=== PATIENT | male | born 1960 | race Caucasian/White ===

== ENCOUNTER 2016-11-03 13:52 | Inpatient (IN) | payer MEDICAID ==
[~2016-11-03] VITALS: Ht 172.7 cm; Wt 74.8 kg
[2016-11-03 14:02] VITALS: BP_SYST 130
[2016-11-03] MEDS ORDERED: NACL 0.9% 1,000 ML IV ONE ×3 (14:30→16:00)
[2016-11-03] MEDS ORDERED: INSULIN REGULAR, HUMAN 10 UNITS/0.1 ML INJ IVP ONE ×2 (14:30→15:30)
[2016-11-03 14:39] LABS: BASOPHILS % (AUTO) 0.7 % (0.0-2.0); EOSINOPHILS # (AUTO) 0.1 K/uL (0.0-0.4); EOSINOPHILS % (AUTO) 1.2 % (0.0-4.0); HEMATOCRIT 45.7 % (36-54); HEMOGLOBIN 15.2 g/dL (14.0-18.0); LYMPHOCYTES # (AUTO) 1.7 K/uL (1.0-5.5); LYMPHOCYTES % (AUTO) 31.5 % (20.5-51.5); MEAN CORPUSCULAR HEMOGLOBIN 28 pg (27-31); MEAN CORPUSCULAR HGB CONC 33 % (32-36); MEAN CORPUSCULAR VOLUME 84 fL (79.0-98.0); MONOCYTES # (AUTO) 0.6 K/uL (0.0-1.0); MONOCYTES % (AUTO) 10.2 % (1.7-9.3); NEUTROPHILS # (AUTO) 3.1 K/uL (1.8-7.7); NEUTROPHILS % (AUTO) 56.4 % (40.0-70.0); PLATELET COUNT (AUTO) 370 K/uL (130-430); RED BLOOD CELL COUNT(AUTO) 5.43 MIL/uL (4.2-6.2); RED CELL DISTRIBUTION WIDTH 12.2 % (9.0-15.0); WHITE BLOOD COUNT (AUTO) 5.5 K/uL (4.8-10.8)
[2016-11-03 14:51] LABS: INR 0.8 (0.80-1.20)
[2016-11-03 14:54] LABS: ANION GAP 5 (5-15); CHLORIDE 89 mmol/L (98-107); CREATININE 1.14 mg/dL (0.55-1.30); POTASSIUM 3.6 mmol/L (3.5-5.1); SODIUM SERUM 123 mmol/L (136-145); UREA NITROGEN, BLOOD 15 mg/dL (8-21)
[2016-11-03 14:55] LABS: BILIRUBIN,URINE NEGATIVE (NEGATIVE); BLOOD, URINE NEGATIVE (NEGATIVE); CLARITY/URINE CLEAR (CLEAR); COLOR,URINE YELLOW (YELLOW); GLUCOSE,URINE 3+ (NEGATIVE); KETONES,URINE NEGATIVE (NEGATIVE); LEUKOCYTE ESTERASE ,URINE NEGATIVE (NEGATIVE); NITRITE, URINE NEGATIVE (NEGATIVE); PROTEIN URINE NEGATIVE (NEGATIVE); UROBILINOGEN,URINE 0.2 (0.2-1.0)
[2016-11-03 14:59] LABS: GFR AFRICAN AMERICAN 85 mL/min (>90)
[2016-11-03 15:02] LABS: GLUCOSE 736 mg/dL (70-99)
[2016-11-03 15:05] LABS: ALANINE AMINOTRANSFERASE 60 U/L (12-78); ALBUMIN 3.6 g/dL (3.4-4.8); ASPARTATE AMINOTRANSFERASE 26 U/L (10-37); TOTAL BILIRUBIN 0.8 mg/dL (0.0-1.0); TOTAL PROTEIN, SERUM 7.6 g/dL (6.4-8.3)
[2016-11-03 15:19] LABS: ACETONE, SERUM NEGATIVE (NEGATIVE); PROTHROMBIN TIME 9.1 SECS (9.5-12.5)
[2016-11-03 15:23] LABS: BACTERIA,URINE RARE /HPF (None Seen); MUCUS,URINE None Seen /LPF (None Seen); RBC,URINE NONE SEEN /HPF (0-3); WBC,URINE 0-3 /HPF (0-3)
[2016-11-03 16:17] VITALS: BP_SYST 115
[2016-11-03] MEDS ORDERED: GLUCOSE 15 GM GEL (in 37.5 GM TUBE) PO PRN ×2 (16:45)
[2016-11-03] MEDS ORDERED: DEXTROSE 50%-WATER 50 ML DISP.SYRIN IVP PRN ×2 (16:45)
[2016-11-03] MEDS: INSULIN REGULAR, HUMAN 100 UNITS/ML, 10 ML VIAL (novoLIN R) SUBCUT PRN ×2 (17:12→22:05)
[2016-11-03 17:31] LABS: ABG TOTAL HEMOGLOBIN 12.9 G/dL (12.0-18.0); BLOOD GAS COHb% 0.8 % (0.5-1.5); BLOOD GAS HHB 4.7 % (0.0-6.0); BLOOD GAS PH 7.397 (7.350-7.450); BLOOD O2Hb% 94.2 % (94.0-97.0)
[2016-11-03] MEDS ORDERED: POTASSIUM CHLORIDE 10 MEQ TAB.PRT.SR PO PRN (18:45)
[2016-11-03] MEDS ORDERED: MORPHINE 2 MG/ML INJ. SYRINGE IVP PRN (18:45)
[2016-11-03] MEDS ORDERED: ONDANSETRON HCL 4 MG/2 ML VIAL IVP PRN (18:45)
[2016-11-03] MEDS ORDERED: DOCUSATE SODIUM 100 MG CAPSULE PO PRN (18:45)
[2016-11-03] MEDS ORDERED: MAGNESIUM SULFATE 50 ML IV PRN (18:45)
[2016-11-03] MEDS ORDERED: LORazepam 2 MG/ML VIAL IVP PRN (18:45)
[2016-11-03] MEDS ORDERED: ACETAMINOPHEN 325 MG TABLET PO PRN (18:45)
[2016-11-03 19:40] VITALS: BP_SYST 115
[2016-11-03] MEDS ORDERED: ZOLPIDEM TARTRATE 5 MG TABLET PO PRN (21:00)
[2016-11-03] MEDS: HEPARIN SODIUM,PORCINE 5000 UNITS/ML VIAL SUBCUT SCH (22:06)
[2016-11-04 01:09] VITALS: BP_SYST 126
[2016-11-04 04:00] VITALS: BP_SYST 124
[2016-11-04 06:26] LABS: BASOPHILS % (AUTO) 0.6 % (0.0-2.0); EOSINOPHILS # (AUTO) 0.1 K/uL (0.0-0.4); EOSINOPHILS % (AUTO) 1.6 % (0.0-4.0); HEMATOCRIT 39.5 % (36-54); HEMOGLOBIN 13.6 g/dL (14.0-18.0); LYMPHOCYTES # (AUTO) 2.1 K/uL (1.0-5.5); LYMPHOCYTES % (AUTO) 37.9 % (20.5-51.5); MEAN CORPUSCULAR HEMOGLOBIN 29 pg (27-31); MEAN CORPUSCULAR HGB CONC 34 % (32-36); MEAN CORPUSCULAR VOLUME 84 fL (79.0-98.0); MONOCYTES # (AUTO) 0.6 K/uL (0.0-1.0); MONOCYTES % (AUTO) 9.9 % (1.7-9.3); NEUTROPHILS # (AUTO) 2.9 K/uL (1.8-7.7); PLATELET COUNT (AUTO) 295 K/uL (130-430); RED BLOOD CELL COUNT(AUTO) 4.72 MIL/uL (4.2-6.2); RED CELL DISTRIBUTION WIDTH 12.3 % (9.0-15.0); WHITE BLOOD COUNT (AUTO) 5.7 K/uL (4.8-10.8)
[2016-11-04] MEDS: INSULIN REGULAR, HUMAN 100 UNITS/ML, 10 ML VIAL (novoLIN R) SUBCUT PRN ×4 (06:45→22:11)
[2016-11-04 06:49] LABS: CALCIUM 8.5 mg/dL (8.4-11.0); CREATININE 0.85 mg/dL (0.55-1.30); POTASSIUM 3.5 mmol/L (3.5-5.1)
[2016-11-04 08:00] VITALS: BP_SYST 134
[2016-11-04] MEDS: HEPARIN SODIUM,PORCINE 5000 UNITS/ML VIAL SUBCUT SCH ×2 (08:31→22:10)
[2016-11-04] MEDS ORDERED: INSULIN NPH/REGULAR 70-30, 100 UNITS/ML, 10 ML VIAL SUBCUT ONE (10:00)
[2016-11-04 10:05] LABS: ALBUMIN 3.1 g/dL (3.4-4.8); BILIRUBIN,DIRECT 0.2 mg/dL (0.0-0.3); TOTAL BILIRUBIN 0.7 mg/dL (0.0-1.0); TOTAL PROTEIN, SERUM 6.3 g/dL (6.4-8.3)
[2016-11-04 12:00] VITALS: BP_SYST 149
[2016-11-04] MEDS: NACL 0.9% 1,000 ML IV SCH (12:31)
[2016-11-04 19:45] VITALS: BP_SYST 139
[2016-11-05 00:25] VITALS: BP_SYST 131
[2016-11-05] MEDS: NACL 0.9% 1,000 ML IV SCH ×3 (02:18→12:36)
[2016-11-05 04:23] VITALS: BP_SYST 112
[2016-11-05] MEDS: INSULIN REGULAR, HUMAN 100 UNITS/ML, 10 ML VIAL (novoLIN R) SUBCUT PRN ×2 (06:25→12:25)
[2016-11-05 07:15] LABS: BASOPHILS % (AUTO) 0.6 % (0.0-2.0); EOSINOPHILS # (AUTO) 0.1 K/uL (0.0-0.4); EOSINOPHILS % (AUTO) 1.2 % (0.0-4.0); HEMATOCRIT 40.6 % (36-54); LYMPHOCYTES # (AUTO) 2.1 K/uL (1.0-5.5); LYMPHOCYTES % (AUTO) 39.4 % (20.5-51.5); MEAN CORPUSCULAR HEMOGLOBIN 29 pg (27-31); MEAN CORPUSCULAR HGB CONC 35 % (32-36); MEAN CORPUSCULAR VOLUME 84 fL (79.0-98.0); MONOCYTES # (AUTO) 0.5 K/uL (0.0-1.0); MONOCYTES % (AUTO) 9.3 % (1.7-9.3); NEUTROPHILS # (AUTO) 2.6 K/uL (1.8-7.7); NEUTROPHILS % (AUTO) 49.5 % (40.0-70.0); PLATELET COUNT (AUTO) 326 K/uL (130-430); RED BLOOD CELL COUNT(AUTO) 4.86 MIL/uL (4.2-6.2); RED CELL DISTRIBUTION WIDTH 12.1 % (9.0-15.0); WHITE BLOOD COUNT (AUTO) 5.3 K/uL (4.8-10.8)
[2016-11-05 07:18] LABS: CALCIUM 8.8 mg/dL (8.4-11.0); CREATININE 0.77 mg/dL (0.55-1.30); POTASSIUM 3.3 mmol/L (3.5-5.1)
[2016-11-05] MEDS: HEPARIN SODIUM,PORCINE 5000 UNITS/ML VIAL SUBCUT SCH (09:09)
[2016-11-05 09:17] VITALS: BP_SYST 141
[2016-11-05 12:25] VITALS: BP_SYST 136
[2016-11-05 14:55] VITALS: BP_SYST 99
[2016-11-05] MEDS ORDERED: GLU850 (15:09)
[2016-11-05] MEDS ORDERED: INSU100V11 SQ (15:09)
[2016-11-05] MEDS ORDERED: INSU100V32 SUBCUT (15:10)
== END 2016-11-05 16:00 | disposition home or self-care (01) | DRG 420 ==
LOC: SED 13:52 → SMU 15:59
PROVIDERS: ADMIT General Practice; ATTEND General Practice
DX: E11.65 Type 2 diabetes mellitus with hyperglycemia (principal); E87.1 Hypo-osmolality and hyponatremia; Z71.3 Dietary counseling and surveillance
CPT/HCPCS: 36415; 36600; 71010; 80048; 80053; 80076; 81000-TC; 82009-TC; 82803-TC; 82962; 83735-TC; 83880; 84484; 85025; 85610-TC; 85730-TC; 93005; 96361; 96374; 96375; 99285; J1644; J1815; J2270; J7030

== ENCOUNTER 2016-12-23 19:13 | Emergency (ER) | payer MEDICAID ==
[~2016-12-23] VITALS: Ht 172.7 cm; Wt 74.8 kg
[~2016-12-23 19:13] MED LIST: GLU850; INSU100V11 SQ; INSU100V32 SUBCUT
[2016-12-23 19:15] VITALS: BP_SYST 128
--- NOTE | 2016-12-23 19:40 | NUR ---
Placed in room 5 . To gown for exam. Side rails up.
[2016-12-23 20:25] VITALS: BP_SYST 132
--- NOTE | 2016-12-23 20:25 | NUR ---
ER Dr. JEFFERSON at bedside examining patient.
[2016-12-23] MEDS ORDERED: INSULIN REGULAR, HUMAN 10 UNITS/0.1 ML INJ SUBCUT ONE (20:45)
--- NOTE | 2016-12-23 20:45 | NUR ---
PT REFUSED ORDERED LEARNING DEVELOPMENT SPECIALIST, STATES HE WILL TAKE HIS OWN MED AT HOME.
--- NOTE | 2016-12-23 20:50 | NUR ---
Patient given written and verbal discharge instructions and verbalizes understanding. ER MD DR. JEFFERSON discussed with patient the results and treatment provided. Patient in stable condition. ID arm band removed. Rx of METFORMIN AND LANTUS given. Patient educated on pain management and to follow up with PMD. Pain Scale 0/10, STATES HE HAS NO PAIN. Opportunity for questions provided and answered.
== END 2016-12-23 20:50 | disposition home or self-care (01) ==
LOC: SED 19:13
DX: Z76.0 Encounter for issue of repeat prescription (principal); E11.9 Type 2 diabetes mellitus without complications; Z79.4 Long term (current) use of insulin
CPT/HCPCS: 99283